=== PATIENT | male | born 1955 | race Caucasian/White ===

== ENCOUNTER → 2017-11-26 10:45 | Outpatient (CLI) | payer MEDICARE, SELFPAY | PROVIDERS: PCP Neuromusculoskeletal Medicine & OMM; Visit Provider Student in an Organized Health Care Education/Training Program | DX: M75.112 Incomplete rotator cuff tear or rupture of left shoulder, not specified as traumatic (principal); M25.512 Pain in left shoulder; M19.012 Primary osteoarthritis, left shoulder | CPT/HCPCS: 20610; 99213; J1040 ==

== ENCOUNTER 2018-05-04 09:40 | Outpatient (CLI) | payer MEDICARE, SELFPAY ==
--- NOTE | 2018-05-04 12:54 | W.PREOPHP ---
Date of service: 05/04/18 Assessment and Plan (1) Partial tear of left rotator cuff: Current visit: Yes Status: Chronic Left shoulder arthroscopy with rotator cuff debridement, and distal clavicle excision. Possible left rotator cuff repair with biceps tenotomy as well. Details of surgery were discussed with patient as well as risks and pertinent anatomy. All questions were answered. History of Present Illness Narrative: Chidi is a [id number] 62-year-old male who is been complaining of left shoulder pain since an injury that he sustained on 05/16/2013. He states that he was trying to get up into his truck when he slipped and fell and try to use his left arm to hold himself, causing a left shoulder injury. Since that he has had some nagging left shoulder pain. He states it is worse when he is reaching away from his body especially he has to do any lifting. He also has significant pain at night, to the point where he has trouble sleeping. He has been treated conservatively with injections, and physical therapy. Despite these interventions, including intra-articular injections, he continues to have pain. An MRI showed some partial tearing of the left rotator cuff, but no complete tear was noted on the MRI. He also has some DJD of the AC joint. He has had multiple right shoulder procedures for a similar problem, and he has gotten better, but he is not at 100% with the right shoulder either. At this point, since he has failed conservative treatment, Dr. Markham offers a left shoulder arthroscopy with debridement, and distal clavicle excision. If it is necessary, he will also do a biceps tenotomy and rotator cuff repair. Chidi agrees with this plan and is anxious to proceed. Pertinent Surgical Information Patient denies history of hypertension, CVA, AL, angina, asthma, COPD, renal or liver disorders, hepatitis, bleeding disorders, diabetes, immune or thyroid disorders. No complications from anesthesia. Review of Systems Constitutional Denies fever(s) ENT Denies dizziness and Denies sore throat Cardiovascular Denies chest pain, Denies palpitations and Denies dyspnea Respiratory Denies dyspnea Gastrointestinal Denies abdominal pain, Denies melena, Denies hematochezia, Denies diarrhea, Denies nausea and Denies vomiting Genitourinary Denies hematuria and Denies dysuria Neurologic Denies dizziness Endocrine Denies palpitations [facility] Medical History Hyperlipidemia (Chronic) Surgical History History of appendectomy (Chronic) History of repair of right rotator cuff (Chronic) Status post excision of lipoma (Chronic) Status post wrist surgery (Chronic) Social History alcohol intake: current alcohol intake frequency: 0-2 drinks per day Meds Home Medications Medication Instructions Recorded Confirmed Type hydromorphone [Dilaudid] 2 mg PO HS tab-cap 10/19/16 05/04/18 History trazodone 50 mg PO HS PRN 11/26/17 05/04/18 History atorvastatin 10 mg tablet 10 mg PO DAILY 05/04/18 05/04/18 History esomeprazole magnesium [Nexium 20 mg PO DAILY 05/04/18 05/04/18 History 24HR] Allergies Allergy/AdvReac Type Severity Reaction Status Date / Time Tetanus Vaccines and Toxoid Allergy Intermediate Verified 05/04/18 09:55 bee venom protein (honey bee) Allergy swells up Unverified 05/04/18 09:55 amoxicillin AdvReac SEVERE Verified 05/04/18 09:55 DIARRHEA Exam HENOR Head: normocephalic and atraumatic General nose exam: no nasal discharge Throat: uvula midline and no uvular edema Other: soft palate rises symmetrically, no erythema Eyes Conjunctivae: conjunctivae normal Sclera: sclerae normal Pupils: PERRL Resp Effort & Inspection: normal respiratory effort Auscultation: clear to auscultation bilaterally and no wheezes Cardio Rate: regular rate Rhythm: regular rhythm Heart Sounds: S1 normal, S2 normal and no murmurs Other: BP: 122/62
--- NOTE | 2018-05-04 12:58 | HPE_ITS ---
Date of service: 05/04/18 Assessment and Plan (1) Partial tear of left rotator cuff: Current visit: Yes Status: Chronic Left shoulder arthroscopy with rotator cuff debridement, and distal clavicle excision. Possible left rotator cuff repair with biceps tenotomy as well. Details of surgery were discussed with patient as well as risks and pertinent anatomy. All questions were answered. History of Present Illness Narrative: Chidi is a [id number] 62-year-old male who is been complaining of left shoulder pain since an injury that he sustained on 05/16/2013. He states that he was trying to get up into his truck when he slipped and fell and try to use his left arm to hold himself, causing a left shoulder injury. Since that he has had some nagging left shoulder pain. He states it is worse when he is reaching away from his body especially he has to do any lifting. He also has significant pain at night, to the point where he has trouble sleeping. He has been treated conservatively with injections, and physical therapy. Despite these interventions, including intra-articular injections, he continues to have pain. An MRI showed some partial tearing of the left rotator cuff, but no complete tear was noted on the MRI. He also has some DJD of the AC joint. He has had multiple right shoulder procedures for a similar problem, and he has gotten better, but he is not at 100% with the right shoulder either. At this point, since he has failed conservative treatment, Dr. Markham offers a left shoulder arthroscopy with debridement, and distal clavicle excision. If it is necessary, he will also do a biceps tenotomy and rotator cuff repair. Chidi agrees with this plan and is anxious to proceed. Pertinent Surgical Information Patient denies history of hypertension, CVA, [place], angina, asthma, COPD, renal or liver disorders, hepatitis, bleeding disorders, diabetes, immune or thyroid disorders. No complications from anesthesia. Review of Systems Constitutional Denies fever(s) ENT Denies dizziness and Denies sore throat Cardiovascular Denies chest pain, Denies palpitations and Denies dyspnea Respiratory Denies dyspnea Gastrointestinal Denies abdominal pain, Denies melena, Denies hematochezia, Denies diarrhea, Denies nausea and Denies vomiting Genitourinary Denies hematuria and Denies dysuria Neurologic Denies dizziness Endocrine Denies palpitations [facility] Medical History Hyperlipidemia (Chronic) Surgical History History of appendectomy (Chronic) History of repair of right rotator cuff (Chronic) Status post excision of lipoma (Chronic) Status post wrist surgery (Chronic) Social History alcohol intake: current alcohol intake frequency: 0-2 drinks per day Meds Home Medications Medication Instructions Recorded Confirmed Type hydromorphone [Dilaudid] 2 mg PO HS tab-cap 10/19/16 05/04/18 History trazodone 50 mg PO HS PRN 11/26/17 05/04/18 History atorvastatin 10 mg tablet 10 mg PO DAILY 05/04/18 05/04/18 History esomeprazole magnesium [Nexium 20 mg PO DAILY 05/04/18 05/04/18 History 24HR] Allergies Allergy/AdvReac Type Severity Reaction Status Date / Time Tetanus Vaccines and Toxoid Allergy Intermediate Verified 05/04/18 09:55 bee venom protein (honey bee) Allergy swells up Unverified 05/04/18 09:55 amoxicillin AdvReac SEVERE Verified 05/04/18 09:55 DIARRHEA Exam HENMO Head: normocephalic and atraumatic General nose exam: no nasal discharge Throat: uvula midline and no uvular edema Other: soft palate rises symmetrically, no erythema Eyes Conjunctivae: conjunctivae normal Sclera: sclerae normal Pupils: PERRL Resp Effort & Inspection: normal respiratory effort Auscultation: clear to auscultation bilaterally and no wheezes Cardio Rate: regular rate Rhythm: regular rhythm Heart Sounds: S1 normal, S2 normal and no murmurs Other: BP: 122/62
== END 2018-05-04 10:00 ==
PROVIDERS: PCP Neuromusculoskeletal Medicine & OMM; Visit Provider Student in an Organized Health Care Education/Training Program
DX: M25.512 Pain in left shoulder (principal); M75.82 Other shoulder lesions, left shoulder; M19.012 Primary osteoarthritis, left shoulder; Z01.818 Encounter for other preprocedural examination
CPT/HCPCS: NC

== ENCOUNTER 2018-05-10 10:02 | Day surgery (SDC) | payer OTHER, SELFPAY ==
[2018-05-10] VITALS (8 sets, daily range): BP systolic 98–166; BP diastolic 52–82; PULSE 47–70; RESP 13–19; TEMP 36–36.5; O2SAT 92–98
[2018-05-10] MEDS: Lactated Ringers 1,000 ML 80 ML IV (11:05)
[2018-05-10] MEDS: Bupivacaine LIPOSOME/PF 133 MG/10 ML VIAL IJ (11:12)
[2018-05-10] MEDS: Bupivacaine 0.5% Pres-Free 30 ML VIAL (12:16)
--- NOTE | 2018-05-10 14:15 | W.PM.DSUDISC ---
Discharge Plan Disposition Patient Disposition: HOME Condition: Good Discharge Details Reason For Visit: (L) RTC TENDONITIS AC ARTHRITIS Attending Provider: Eric Markham Primary Care Provider: Josias Ocampo Del [place] Meds and New Rx's Prescriptions: New ibuprofen 600 mg tablet 600 mg PO TID PRNQty: 90 RF: 3 hydromorphone 2 mg tablet 2 mg PO Q4H PRN (Reason: pain) Qty: 18 RF: 0 Continued atorvastatin 10 mg tablet 10 mg PO DAILY RF: 0 hydromorphone [Dilaudid] 2 MG tablet 2 mg PO HS RF: 0 trazodone 50 MG tablet 50 mg PO HS PRNRF: 0 esomeprazole magnesium [Nexium 24HR] 20 mg Capsule,Delayed Release(Dr/Ec) 20 mg PO DAILY RF: 0 Changed acetaminophen [Acetaminophen Extra Strength] 500 mg Tablet 1,000 mg PO Q8H PRNQty: 90 RF: 3 Discharge Instructions Stand Alone Forms: Shahrzad Kaba w/RCR, DSU Post op Instructions, Ang Levine (DSU) Referrals: Eric Markham MD [ [facility] STAFF PHYSICIAN] - Equipment/Supplies: Sling Activity:: In sling except for hygiene and pendulum Remove Dressings/Wound Care:: 72 hours Shower/Bathe:: 72 hours Diet:: As Tolerated Discharge Orders Discharge Orders: Discharge Order (Routine); Ordered 05/10/18 Ordered By: Eric Markham DS: Diagnosis Discharge Diagnosis (1) Partial tear of left rotator cuff: Status: Chronic (2) Arthralgia of acromioclavicular joint: Status: Acute
--- NOTE | 2018-05-11 07:23 | ROE_ITS ---
Date of service: 05/10/18 Time of Service: 15:18 Operative Note DATE OF PROCEDURE: 05/10/18 PRE-OP DIAGNOSIS: Left AC joint arthritis, subacromial impingement, partial rotator cuff tear POST-OP DIAGNOSIS: other (Left AC joint arthritis, partial biceps tear, subacromial impingement, high-grade bursal sided rotator cuff tear) PROCEDURE: - Mini-Open Distal Clavicle Excision - Arthroscopic Rotator Cuff Repair - Extensive debridement of anterior and posterior glenohumeral joint and rotator cuff - Biceps tenotomy - Subacromial Debridement with Acromioplasty SURGEON: Eric Markham URANIUM PROCESSING SUPERVISOR: Brown Vaz ANESTHESIA: GETA and regional ESTIMATED BLOOD LOSS: 20 PATHOLOGY: none sent COMPLICATIONS: None Patient was transported to: PACU Patient's condition: stable Indications: I have seen Chidi in clinic for a painful shoulder. Pathology was confirmed based on MRI and exam findings. Nonoperative measures were exhausted but disability and pain persisted. I discussed shoulder arthroscopy and procedures. I reviewed the risks of the procedures to include, but not limited to, bleeding, infection, pain, stiffness, damage to nerves or vessels, recurrence, hardware failure, blood clot. Despite these risks, the patient elected to proceed. Findings: There were signs of arthrosis of the distal clavicle; a 1cm wedge was resected A diagnostic arthroscopy was performed with the following findings: - Glenohumeral Joint: No significant arthritic changes except for some mild fraying - Labrum: Inflammatory changes seen throughout the superior labrum as associated with the biceps anchor and extending anteriorly to about 3:00 - Cuff: No articular sided tearing. The bursal surface of the supraspinatus tendon showed a high-grade partial crescent tear approximately 6-8 mm in thickness. - Biceps: There was fraying and partial tearing of the biceps tendon at the level of groove and extending to the anchor with inflammatory changes at the anchor. - Subacromial: Thickened bursa, bursal sided supraspinatus tear, and a small anterolateral spur Procedure Description: Chidi was greeted in the preoperative holding area where the correct side was identified and marked. The consent was reviewed with the patient and signed. The history and physical was updated. All questions were answered. Chidi was taken back to the PACU for administration of an intrascalene nerve block. Chidi was then taken to the operating room. The patient was placed into the supine position on the operating room table. A general anesthetic was administered. He was then positioned in the beach chair position. All bony prominences were well padded. The head was placed in a foam buyer tobacco head in a n eutral position. Prophylactic antibiotics in the form of cefazolin were administered. The left arm/shoulder was then prepped with Chloraprep and draped in a standard fashion with stockinette and shoulder drape. A timeout to confirm correct identity, side and site, procedure, allergies, anesthesia, and medical concerns was performed. The arm was placed into a pneumatic corado, [id number]. The distal clavicle resection was performed first. An approximately 2-1/2 cm incision was made overlying the AC joint. The skin was incised sharply. The deep tissue was dissected with electrocautery. The clavipectoral fascia was identified and incised longitudinally along the distal clavicle and across the AC joint. A subperiosteal elevation of the tissues were was performed to expose the distal of the clavicle. There was notable arthrosis seen of the distal clavicle. A 1 cm resection was then performed with an oscillating saw making short of bubble posteriorly. A rasp was used to smooth the surfaces of the bony edge. A small amount of bone wax was placed on the edge of the distal clavicle. The wound was thoroughly irrigated. The clavipectoral fascia was reapproximated with 0 Vicryl. The deep and subcu tissues were closed with 2-0 Vicryl. The shoulder arthroscopy was then performed. The glenohumeral joint was injected with 20 cc of normal saline with good flow back. A standard posterior portal was made and the joint was entered atraumatically with a blunt arthroscope. Once inside we had good visualization of the structures of the glenohumeral joint. An anterior portal was established with spinal needle localization. A 6.5 mm cannula was inserted. A probe was then used to perform a diagnostic arthroscopy. There is noted to be no significant cartilage damage of the glenoid humeral joint and only a few areas of some fraying. The labrum was inflamed throughout, specifically superiorly, but no distinct tearing. There were no loose bodies in the inferior pouch. The superior rotator cuff was attached to the tuberosity. The biceps tendon showed fraying and partial tearing along its course with inflammatory changes at its anchor. Given these changes and his symptom profile, I did perform a biceps tenotomy. The subscapularis was intact. The arthroscope was then inserted into the subacromial space. The 6.5 mm cannula was placed lateral to the CA ligament. A complete bursectomy is performed anteriorly, posteriorly, and laterally with electrocautery and shaver. There was a notably thickened bursa. This had excellent exposure of the rotator cuff. The bursal side rotator cuff was thoroughly evaluated and showed a crescent-shaped bursal sided tear. Using a spinal needle a lateral portal was established. This became the viewing portal. There is approximately 6-8 mm of exposed footprint with visible articular fibers intact. This tendon edge was cleaned up using a shaver. The exposed footprint was roughened and decorticated for bleeding surface with a shaver. A single Mytec Healix anchor was placed into this footprint at the level of the intact fibers. Using a suture passer device I placed 2 horizontal mattresses into the tendon tear focusing on just the torn tendon and avoiding the intact fibers as best as possible. 2 horizontal mattress sutures were placed. These were then tied using standard knot tying techniques. This brought down the torn edge to the level of the tuberosity without significant overtightening.. There was a small anterolateral spur. A 5.0 mm juan m was then inserted from the posterior portal. The anter olateral corner of the acromion was then resected in plane with the posterior slope of the acromion. The scope equipment was removed from the shoulder. Excess fluid was evacuated. The portal sites were closed with 3-0 Monocryl. The wounds were dressed with Steri-Strips, 4 x 4's, ABDs, Medipore tape. A sling was applied. The patient tolerated the procedure well and was returned to the Same Day Surgery area in a stable condition suffering no known complication.
== END 2018-05-10 16:52 | disposition home or self-care (01) ==
PROVIDERS: PCP Neuromusculoskeletal Medicine & OMM; Visit Provider Student in an Organized Health Care Education/Training Program
PROC: (CPT 29805; principal; 2018-05-10 11:45)
PROC: (CPT 23120; 2018-05-10 11:45)
DX: M19.012 Primary osteoarthritis, left shoulder (principal); M75.42 Impingement syndrome of left shoulder; M75.112 Incomplete rotator cuff tear or rupture of left shoulder, not specified as traumatic; M75.22 Bicipital tendinitis, left shoulder; M75.52 Bursitis of left shoulder; G89.18 Other acute postprocedural pain
CPT/HCPCS: 29827; 29826; 29823; 23120; 64415; C1713; 76942; J0690; J1100; J2250; J2405; L3670

== ENCOUNTER → 2018-05-23 10:56 | Outpatient (BNVA) | payer OTHER, SELFPAY | PROVIDERS: PCP Neuromusculoskeletal Medicine & OMM; Referring Provider Neuromusculoskeletal Medicine & OMM; Visit Provider Student in an Organized Health Care Education/Training Program | DX: Z47.89 Encounter for other orthopedic aftercare (principal); M75.112 Incomplete rotator cuff tear or rupture of left shoulder, not specified as traumatic ==

== ENCOUNTER → 2018-06-20 10:09 | Outpatient (BNVA) | payer OTHER, SELFPAY | PROVIDERS: PCP Neuromusculoskeletal Medicine & OMM; Referring Provider Neuromusculoskeletal Medicine & OMM; Visit Provider Student in an Organized Health Care Education/Training Program | DX: Z47.89 Encounter for other orthopedic aftercare (principal); M25.512 Pain in left shoulder; M75.112 Incomplete rotator cuff tear or rupture of left shoulder, not specified as traumatic ==

== ENCOUNTER → 2018-07-18 09:51 | Outpatient (BNVA) | payer OTHER, SELFPAY | PROVIDERS: PCP Neuromusculoskeletal Medicine & OMM; Referring Provider Neuromusculoskeletal Medicine & OMM; Visit Provider Student in an Organized Health Care Education/Training Program | DX: Z47.89 Encounter for other orthopedic aftercare (principal); M75.112 Incomplete rotator cuff tear or rupture of left shoulder, not specified as traumatic; M25.512 Pain in left shoulder | CPT/HCPCS: 20610; J1040 ==

== ENCOUNTER → 2018-08-29 10:36 | Outpatient (BNVA) | payer OTHER, SELFPAY | PROVIDERS: PCP Neuromusculoskeletal Medicine & OMM; Referring Provider Neuromusculoskeletal Medicine & OMM; Visit Provider Student in an Organized Health Care Education/Training Program | DX: Z47.89 Encounter for other orthopedic aftercare (principal); G89.29 Other chronic pain; Z98.890 Other specified postprocedural states | CPT/HCPCS: 99213 ==

== ENCOUNTER 2019-12-14 00:06 | Outpatient (CLI) | payer OTHER, SELFPAY ==
--- NOTE | 2019-12-14 | DI.NM_ITS ---
APPROVED REPORT Exam: Pharmacologic Patient Location: Out-Patient Room/Bed: Stress Nurse: Teri Morocho RN BMI: 31.88 Baseline Rhythm: Sinus Rhythm, incomplete RBBB Indications: Chest discomfort Medical History Medical History: Angina, CAD s/p [place], CAD s/p stent, HTN, Hyperlipidemia, Incomplete RBBB Cardiac Medications: Aspirin. Atorvastatin. Metoprolol Succinate. Clopidogrel. Isosorbide Mononitrate . Lisinopril. Magnesium. Nitroglycerin. Zetia., Allergies: No known drug allergies Cardiac Risk Factors: HTN, Hyperlipidemia, FHX of CAD Previous Cardiac Procedures: PCI, Myocardial infarction Exercise History: Physically active Lung Sounds: Clear to auscultation Heart Sounds: Regular Stress Test Details Test: Pharmacologic stress testing performed using 0.4 mg of regadenoson per 5 mL given IV over 10 s econds. Nuclear Acquisition: Rest Tc-99m/Stress Tc-99m 1 day Rest Isotope: Tc-99m Sestamibi. Dose: 10.8 Date: 12/14/2019 Injection Time: 0910 Stress Isotope: Tc-99m Sestamibi. Dose: 32.3 Date: 12/14/2019 Injection Time: 1100 HR Resting HR Supine: 59 bpm Max Heart Rate (APMHR): 157 bpm Target HR (85% APMHR): 133 bpm Max HR Achieved: 89 bpm % of APMHR: 56 BP Resting BP Supine: 166/88 mmHg Max BP: 166/88 mmHg Recovery BP: 154/82 mmHg ECG Resting ECG: Sinus Rhythm, incomplete RBBB. Stress ECG: Sinus Rhythm, incomplete RBBB. ST Change: No significant ST segment changes Recovery ECG: Sinus Rhythm, incomplete RBBB. Recovery ST Change: No significant ST segment changes Recovery Arrhythmia: None Clinical Stress Symptoms: Few seconds of Chest pain 1 minute post Lexiscan injection Stress ECG Conclusion 1. This was a pharmacological stress test. 2. Patient no symptoms suggestive of ischemia. 3. EKG portion of this exam was nondiagnostic Stress Test Summary STAGE HR BP Symptoms NOTES Supine 59 166/88 1 min post Lexiscan injection 89 140/80 Brief, few seconds of chest pain-1 minute post lexiscan inj ection, subsided quickly. 3 min post Lexiscan injection 80 144/82 6 min post Lexiscan injection 74 154/82 MPI Conclusion Ejection fraction was 44% with stress. There were no wall motion abnormalities. There was a small partially reversible perfusion defect of the apex. Radiologist Interpretation Radiologist agrees with Prospect Manager's Interpretation. Radiologist Interpretation by: Luana Bermudez MD Interpretation Date/Time: 12/14/2019 15:58:19
[2019-12-14] MEDS: Regadenoson 0.4 MG/5 ML SYR IVP (10:59)
== END 2019-12-14 00:26 ==
PROVIDERS: PCP Neuromusculoskeletal Medicine & OMM; Visit Provider Internal Medicine Interventional Cardiology
DX: R07.89 Other chest pain (principal); I10 Essential (primary) hypertension; E78.5 Hyperlipidemia, unspecified; Z82.49 Family history of ischemic heart disease and other diseases of the circulatory system
CPT/HCPCS: 78452; 93016; 93018; 93017; J2785